=== PATIENT | female | born 1985 | race Caucasian/White ===

== ENCOUNTER 2018-07-17 16:31 | Emergency (ER) | payer BC, OTHER ==
[~2018-07-17] VITALS: Ht 160 cm; Wt 51.6 kg
[~2018-07-17 16:31] MED LIST: BEN25 PO; ONDA4TAB13 PO; [UNRECOGNIZED DRUG - OTHER] TP
[2018-07-17 16:40] VITALS: Ht 160 cm; Wt 51.6 kg
--- NOTE | 2018-07-17 17:26 | EN ---
Date/Time of Note Date/Time of Note DATE: 07/17/18 TIME: 17:25 ER Progress Note ED 3 MSE patient with dysuria for 3 days. Your urine ordered via provider in triage. Well-appearing no SIRS criteria.. FERNANDO BROOKE MD July 17, 2018 17:26
[2018-07-17] MEDS ORDERED: KETOROLAC 30 MG INJ IM STA (17:58)
[2018-07-17] MEDS ORDERED: KETOROLAC 30 MG INJ IV STA (18:16)
--- NOTE | 2018-07-17 18:32 | ERD ---
ER Documentation Chief Complaint Chief Complaint blood in urine and vaginal pain today HPI 33-year-old female with no reported past medical surgical history, status post appendectomy 10 years ago who presents with complaint of worsening pelvic pain and hematuria. Patient states she been having vague intermittent pelvic/abdominal cramping over the past week but patient states symptoms worsened today at about 12 PM when she noticed dull constant mid pelvic pain and noted hematuria. She denies vaginal bleeding or vaginal discharge, passage of blood clots. She denies any recent vaginal trauma. She also denies associated nausea, vomiting, diarrhea, juan a abdominal pain, radiation of pelvic pain. States had an about 6 months ago without subsequent complications. She is sexually active with one partner. She otherwise is without further symptoms or further complaints. At time of examination patient in mild distress otherwise with normal triage vital signs. ROS All systems reviewed and are negative except as per history of present illness. Medications Home Meds Active Scripts Naproxen* (Naprosyn*) 500 Mg Tablet, 500 MG PO BID PRN for PAIN AND/OR INFLA MMATION, #30 TAB Prov:MARGARET CHAIREZ PA-C 07/17/18 Cephalexin* (Keflex*) 500 Mg Capsule, 500 MG PO BID for 14 Days, CAP Prov:MARGARET CHAIREZ PA-C 07/17/18 Ondansetron Hcl* (Zofran*) 4 Mg Tab, 4 MG PO Q6H PRN for NAUSEA AND OR VOMITING, #10 TAB Prov:FERNANDO FOLEY PA-C 01/08/15 Hc/Mineral Oil/Petrolat,Wht (Hydrocortisone 1% Absorbase) 454 Gm Oint..gm., 454 GM TP BID for 5 Days Prov:JOHN SIMPSON PA-C 12/06/14 Diphenhydramine Hcl* (Benadryl*) 25 Mg Cap, 25 MG PO Q6, #20 CAP Prov:JOHN SIMPSON PA-C 12/06/14 Allergies Allergies: Coded Allergies: No Known Allergy (Unverified , 12/06/14) PMhx/Soc History of Surgery: Yes (APPY) Anesthesia Reaction: No Hx Neurological Disorder: No Hx Respiratory Disorders: No Hx Cardiac Disorders: No Hx Psychiatric Problems: No Hx Miscellaneous Medical Probl: No Hx Alcohol Use: No Hx Substance Use: No Hx Tobacco Use: No Smoking Status: Never smoker FmHx Family History: No diabetes, No coronary disease, No other Physical Exam Vitals Vital Signs Date Temp Pulse Resp B/P (MAP) Pulse Ox O2 O2 Flow FiO2 Time Delivery Rate 07/17/18 98.1 74 18 124/84 99 Room Air 20:39 (97) 07/17/18 98.1 85 18 128/86 99 16:40 (100) Physical Exam I have reviewed the triage vital signs. Const: Well nourished, well developed, appears stated age Eyes: PERRL, no conjunctival injection HENT: NCAT, Neck supple without meningismus CV: RRR, Warm, well-perfused extremities RESP: CTAB, Unlabored respiratory effort GI: Tenderness to palpation above symphysis pubis, nontender to abdomen, no rebound or guarding, bowel sounds present, no flank tenderness MSK: No gross deformities appreciated Skin: Warm, dry. No rashes Neuro: grossly non focal Psych: Appropriate mood and affect. Result Diagram: 07/17/18180607/17/181806 Results 24 hrs Laboratory Tests Test 07/17/18 17:50 07/17/18 18:07 Urine Color RED Urine Clarity CLEAR Urine pH 8.0 Urine Specific [place] 1.003 Urine Ketones NEGATIVE mg/dL Urine Nitrite NEGATIVE mg/dL Urine Bilirubin NEGATIVE mg/dL Urine Urobilinogen NEGATIVE mg/dL Urine Leukocyte Esterase TRACE Tiffanie/ul Urine Microscopic RBC 35 /HPF Urine Microscopic WBC 13 /HPF Urine Squamous Epithelial Cells FEW /HPF Urine Bacteria MODERATE /HPF Urine Hemoglobin 3+ mg/dL Urine Glucose NEGATIVE mg/dL Urine Total Protein 2+ mg/dl Urine Test NEGATIVE White Blood Count 11.3 10^3/ul Red Blood Count 4.52 10^6/ul Hemoglobin 13.3 g/dl Hematocrit 41.5 % Mean Corpuscular Volume 91.8 fl Mean Corpuscular Hemoglobin 29.4 pg Mean Corpuscular Hemoglobin Concent 32.0 g/dl Red Cell Distribution Width 13.8 % Platelet Count 283 10^3/UL Mean Platelet Volume 10.5 fl Immature Granulocytes % 0.400 % Neutrophils % 74.0 % Lymphocytes % 18.4 % Monocytes % 6.4 % Eosinophils % 0.5 % Basophils % 0.3 % Nucleated Red Blood Cells % 0.0 /100WBC Immature Granulocytes # 0.040 10^3/ul Neutrophils # 8.4 10^3/ul Lymphocytes # 2.1 10^3/ul Monocytes # 0.7 10^3/ul Eosinophils # 0.1 10^3/ul Basophils # 0.0 10^3/ul Nucleated Red Blood Cells # 0.0 10^3/ul Sodium Level 141 mmol/L Potassium Level 4.0 mmol/L Chloride Level 106 mmol/L Carbon Dioxide Level 27 mmol/L Anion Gap 8 Blood Urea Nitrogen 13 mg/dl Creatinine 0.98 mg/dl Est Glomerular Filtrat Rate mL/min > 60 mL/min Glucose Level 96 mg/dl Calcium Level 9.7 mg/dl Lipase 99 U/L Current Medications Medications Dose Sig/Kody Start Time Status Last (Trade) Ordered Route PRN Stop Time Admin Dose Reason Admin Ketorolac 30 mg ONCE STAT 07/17/18 DC Tromethamine IM 17:58 (Toradol) 07/17/18 18:17 Ketorolac 30 mg ONCE STAT 07/17/18 DC 07/17/18 Tromethamine IV 18:16 18:19 (Toradol) 07/17/18 18:17 Morphine 2 mg ONCE STAT 07/17/18 DC 07/17/18 Sulfate IV 18:34 18:42 (morphine) 07/17/18 18:35 Ceftriaxone 50 ml @ ONCE ONCE 07/17/18 DC 07/17/18 Sodium 100 mls/hr IVPB 20:30 20:10 07/17/18 20:59 Procedures/MDM 33-year-old female presents with hematuria and pelvic pain. Pelvic ultrasound without acute finding. I have low suspicion for any intra-abdominal pelvic process requiring further emergent work-up or care. Patient nontoxic-appearing with reassuring examination. ED course: We will discharge with course of Keflex given UTI Medic treatment DISPOSITION PLAN: We discussed follow up with the patient's primary care doctor within 24 to 48 hours. Patient counseled regarding my diagnostic impression and care plan. Prior to discharge all questions answered. Pt agrees with treatment plan and understands strict return precautions. Precautionary instructions provided including instructions to return to the ER if not improving or for any worsening or changing symptoms or concerns. Disclaimer: Inadvertent spelling and grammatical errors are likely due to EHR/dictation software use and do not reflect on the overall quality of patient care. Also, please note that the electronic time recorded on this note does not necessarily reflect the actual time of the patient encounter. Departure Diagnosis: Primary Impression: Hematuria Condition: Stable MARGARET CHAIREZ PA-C July 17, 2018 18:31
[2018-07-17] MEDS ORDERED: morphine 2 MG INJ IV STA (18:34)
[2018-07-17] MEDS ORDERED: CEPH-443 PO (20:05)
[2018-07-17] MEDS ORDERED: NAPR-985 PO (20:06)
[2018-07-17] MEDS ORDERED: CEFTRIAXONE 1 GM/50 ML (PMX) 50 ML IVPB ONE (20:30)
[2018-07-17 20:39] VITALS: BP 124/84; PULSE 74; RESP 18
== END 2018-07-17 20:11 | disposition home or self-care (01) ==
LOC: FTE 16:31
DX: R31.9 Hematuria, unspecified (principal)
CPT/HCPCS: 76830; 76856; 80048; 81001; 83690; 84703; 85025; 96374; 96375; 99285; J0696; J1885; J2270